=== PATIENT | male | born 1960 | race American Indian/Alaskan Native ===

== ENCOUNTER 2022-02-23 08:35 | Emergency (ER) | payer OTHER, MEDICARE ==
[2022-02-23] MEDS ORDERED: IBUPROFEN 800 MG TAB PO ONE (10:24)
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
[2022-02-23 11:45] VITALS: BP 140/62
== END 2022-02-23 11:43 | disposition home or self-care (01) ==
LOC: ED 08:35
DX: M54.50 Low back pain, unspecified (principal); M25.551 Pain in right hip; M25.552 Pain in left hip; V87.7XXA Person injured in collision between other specified motor vehicles (traffic), initial encounter; Y93.89 Activity, other specified; Y92.488 Other paved roadways as the place of occurrence of the external cause; Y99.8 Other external cause status
CPT/HCPCS: 72100; 73521; 99283